=== PATIENT | male | born 1950 | race Caucasian/White ===

== ENCOUNTER 2021-08-25 17:03 | Emergency (ER) | payer MEDICARE, MEDICAID, SELFPAY ==
[2021-08-25 17:29] VITALS: BP 147/71; PULSE 82; RESP 18; TEMP 36.9; O2SAT 97; BMI 27.8
--- NOTE | 2021-08-25 18:25 | ED.URI ---
HPI - URI/Sore Throat General Chief Complaint: Upper Respiratory Symptoms Stated Complaint: COVID+ Time Seen by Provider: 08/25/21 17:59 Source: patient Mode of arrival: ambulatory Limitations: language barrier (Greek speaking ) History of Present Illness HPI Narrative: 71-year-old male who is Greek-speaking who reports he has a past medical history of HTN and DM presenting to the ED with complaints of a sore throat for the past 2 days. Reports that he took at home COVID test today and was positive. Reports that his was seen here a few days ago and was diagnosed with COVID and was given albuterol inhaler, Robitussin with codeine and doxycycline he reports that her symptoms have improved significantly along with the monoclonal antibody therapy. Therefore he is requesting to be referred to monoclonal antibody therapy and he would like the same albuterol, Robitussin with codeine and doxycycline his had as well. He denies any measured fevers, dizziness, headaches, neck pain/ stiffness, trouble swallowing or breathing, chest pain or shortness of breath, dyspnea on exertion, orthopnea, cough, sputum production, loss of taste or smell, nausea/vomiting / diarrhea constipation, abdominal pain, rashes can recent travel or any other sick contacts. Reports that he is fully vaccinated to COVID. elicited complaint: sore throat Onset (ago): day(s) (2) Consistency: constant and progressively worsening Severity: mild Able to tolerate fluids by mouth: Yes Exacerbating factors: swallowing Relieving factors: nothing Context: sick contacts ( was tested positive for COVID approximately 5 days ago) and other(s) with similar symptoms Associated symptoms: chills, myalgias and sore throat Treatments prior to arrival: none Related Data Previous Rx's Medication Instructions Recorded albuterol sulfate 90 mcg/actuation 1 inh inhalation QID PRN shortness 08/25/21 aerosol inhaler of breath or wheezing #8.5 grams codeine 10 mg-guaifenesin 100 mg/5 5 ml PO Q6H PRN cold symptoms #120 08/25/21 mL oral liquid (Guaifenesin AC) mL doxycycline monohydrate 100 mg 100 mg PO BID 10 days #20 tabs 08/25/21 tablet Allergies Allergy/AdvReac Type Severity Reaction Status Date / Time No Known Allergies Allergy Verified 08/25/21 17:28 [No Known Allergies*] Review of Systems Review of Systems: Constitutional : + chills/fatigue/malaise, No Weight loss, No Fever, No Night Sweats ENT/Mouth : + sore throat, No Hearing loss, No Ear Pain, No Nasal Congestion, No Sinus Pain, No Hoarseness, No Rhinorrhea, No Swallowing Difficulty Eyes: No Eye Pain, No Swelling, No Redness, No Foreign Body, No Discharge, No Vision Changes Cardiovascular : No Chest Pain, No SOB, No Dyspnea on Exertion, No Orthopnea, No Edema, No Palpitations Respiratory : No Cough, No Sputum, No Wheezing, No Smoke Exposure, No Dyspnea Gastrointestinal : No Nausea, No Vomiting, No Diarrhea, No Constipation, No abdominal Pain, No Hematochezia, No Melena Genitourinary : no irregular bleeding, No Dysuria, No Urinary Frequency, No Hematuria, No Urinary Incontinence, No Urgency, No Flank Pain, No Urinary Flow Changes, No Hesitancy Musculoskeletal : No joint pain, + Myalgias, No Joint Swelling Skin : No Skin Lesions, No rash Neuro : No Weakness, No Numbness, No Paresthesias, No Loss of Consciousness, No Dizziness, No Headache Psych : No Anxiety/Panic, No Depression, No SI/HI/AH/VH, No Social Issues, Heme/Lymph: No Bruising, No Bleeding,No Lymphadenopathy Endocrine : No Polyuria, No Polydipsia, No Temperature Intolerance Yes all other systems are reviewed and are negative [facility] Past Medical History Attestation statement: The following information was validated with the patient. Physical Exam Vital Signs: Vital Signs: Last Vital Signs Temp 98.4 F 08/25/21 17:29 Pulse 82 08/25/21 17:29 Resp 18 08/25/21 17:29 BP 147/71 H 08/25/21 17:29 Pulse Ox 97 08/25/21 17:29 O2 Del Method 08/25/21 17:29 BMI result Body Mass Index 27.8 vital signs have been reviewed as normal and appeared to be correct. Blood pressure 147/71. Heart rate normal. Respiration rate normal. Temperature normal. Oxygen saturation normal. Appearance: Alert. Oriented X3. No acute distress. Head: Normal external exam. Normocephalic. Atraumatic. Eyes: PERRLA. EOMI. Conjunctiva and sclera normal. Eyelids normal. ENT: EAC normal. TM's Normal. Pharynx normal. Uvula midline. Moist mucous membranes. No lesions/ulcerations or masses noted on the tongue. Normal voice. No trismus noted. No drooling noted. No muffled voice noted. Neck: Normal inspection. Neck supple. FROM. No adenopathy. Thyroid Normal. No tracheal deviation noted. No crepitus is noted. No meningeal signs. No neck mass noted. No signs of trauma noted. CVS: Normal heart rate and rhythm. Heart sound normal. Pulses normal throughout. No murmurs/rales/gallops. Respiratory: No respiratory distress. Painless inspiration. Breath sounds normal. No wheezes/rales/rhonchi noted. Chest nontender. No crepitus is noted. No signs of trauma noted. No accessory muscle usage noted or decreased air movement noted. Abdomen: Soft and nontender. Bowel sounds normal in all 4 quadrants. No distention noted. No organomegaly noted. No visible injury noted. Back: Full range of motion noted. Nontender. Skin: Skin warm and dry. Normal skin color. Normal skin turgor. No rashes/lesions/lacerations noted. Extremities: Extremities exhibit normal range of motion and nontender. Neuro: Oriented X 3. No motor deficit. No sensory deficit. Reflexes normal. Normal steady gait. No focal neuro deficits noted. CN's II-XII intact bilaterally? Vascular: + radial pulses/+ 2 distal pedal pulses/+2 dorsalis pedis b/l. Normal cap refill. No cyanosis noted to upper extremity nails and lower extremity toes nails. Course Course Course Narrative: 18:20pm - 71-year-old male who is Greek-speaking who reports he has a past medical history of HTN and DM presenting to the ED with complaints of a sore throat for the past 2 days. Reports that he took at home COVID test today and was positive. Reports that his was seen here a few days ago and was diagnosed with COVID and was given albuterol inhaler, Robitussin with codeine and doxycycline he reports that her symptoms have improved significantly along with the monoclonal antibody therapy. Therefore he is requesting to be referred to monoclonal antibody therapy and he would like the same albuterol, Robitussin with codeine and doxycycline his had as well. Reports that he is fully vaccinated to COVID. will obtain a COVID swab if patient is positive for COVID will refer to monoclonal antibody therapy as patient does have diabetes, hypertension and hyperlipidemia. Will also send home with albuterol inhaler, Robitussin with codeine and doxycycline as he requested and instructions return if any new or worsening symptoms and to self isolate per CDC guidelines if he is positive for COVID-19. Patient understands agrees with this plan. MDM - URI/Sore Throat Medical Records Attestation: I reviewed the patient's medical records. Lab Data Attestation: I reviewed the patient's lab results. Labs: Lab Results 08/25/21 Range/Units 18:21 COVID-19 (RICH) Positive A (Negative) COVID-19 Clin Com See Note Discharge Plan Discharge Clinical Impression: COVID-19 Patient Disposition: Home, Self-Care Instructions: COVID-19 (Coronavirus Disease 2019) (ED) Prescriptions: New doxycycline monohydrate 100 mg tablet 100 mg PO BID 10 Days Qty: 20 0RF albuterol sulfate 90 mcg/actuation HFA aerosol inhaler 1 inh inhalation QID PRN (Reason: shortness of breath or wheezing) Qty: 8.5 0RF codeine-guaifenesin [Guaifenesin AC] 10-100 mg/5 mL liquid 5 ml PO Q6H PRN (Reason: cold symptoms) Qty: 120 0RF Referrals: Lara Cruz MD [Primary Care Provider] - 1 week Stand Alone Forms: Work/School Release Print Language: Greek
[2021-08-25 18:48] LABS: COVID-19 Test Positive (Negative)
== END 2021-08-25 19:04 | disposition home or self-care (01) ==
PROVIDERS: Physician Assistant Medical; Emergency Provider Internal Medicine; PCP Student in an Organized Health Care Education/Training Program
DX: U07.1 COVID-19 (principal); J02.9 Acute pharyngitis, unspecified; I10 Essential (primary) hypertension; E11.9 Type 2 diabetes mellitus without complications
CPT/HCPCS: 87635; 99282; 99283